=== PATIENT | female | born 2005 | race Two or more races ===

== ENCOUNTER → 2024-06-30 14:51 | Outpatient (CLI) | payer OTHER | END | disposition home or self-care (01) | LOC: PRENATAL 14:51 | PROVIDERS: ATTEND Obstetrics & Gynecology Maternal & Fetal Medicine | DX: O35.3XX0 Maternal care for (suspected) damage to fetus from viral disease in mother, not applicable or unspecified (principal); O44.00 Complete placenta previa NOS or without hemorrhage, unspecified trimester; O99.019 Anemia complicating pregnancy, unspecified trimester; O28.3 Abnormal ultrasonic finding on antenatal screening of mother; Z3A.23 23 weeks gestation of pregnancy ==

== ENCOUNTER 2024-08-08 14:20 | Outpatient (CLI) | payer OTHER | END 2024-08-08 14:21 | disposition home or self-care (01) | LOC: PRENATAL 14:20 | PROVIDERS: ATTEND Obstetrics & Gynecology Maternal & Fetal Medicine | DX: O26.849 Uterine size-date discrepancy, unspecified trimester (principal); O36.8199 Decreased fetal movements, unspecified trimester, other fetus; O99.019 Anemia complicating pregnancy, unspecified trimester; O28.3 Abnormal ultrasonic finding on antenatal screening of mother; O40.1XX0 Polyhydramnios, first trimester, not applicable or unspecified; Z3A.28 28 weeks gestation of pregnancy ==

== ENCOUNTER 2024-09-15 12:10 | Outpatient (CLI) | payer OTHER | END 2024-09-15 12:11 | disposition home or self-care (01) | LOC: PRENATAL 12:10 | PROVIDERS: ATTEND Obstetrics & Gynecology Maternal & Fetal Medicine | DX: O26.849 Uterine size-date discrepancy, unspecified trimester (principal); O36.8199 Decreased fetal movements, unspecified trimester, other fetus; O99.019 Anemia complicating pregnancy, unspecified trimester; O28.3 Abnormal ultrasonic finding on antenatal screening of mother; Z3A.35 35 weeks gestation of pregnancy ==